=== PATIENT | female | born 1995 | race Caucasian/White ===

== ENCOUNTER 2019-05-10 17:11 | Emergency (ER) | payer OTHER, SELFPAY ==
[2019-05-10] MEDS ORDERED: Ketorolac Tromethamine 60 MG/2 ML VIAL ONE (17:33)
--- NOTE | 2019-05-10 17:53 | RAD ---
3 views right foot: 05/10/2019 COMPARISON: None HISTORY: Injury, trauma, pain FINDINGS: No fracture or dislocation. No radiopaque foreign body or subcutaneous gas. There is mild e nthesophyte formation at the origin of the plantar aponeurosis and insertion of the Achilles tendon. IMPRESSION: No acute findings.
== END 2019-05-10 18:30 | disposition home or self-care (01) ==
LOC: ERS 17:11
DX: S90.31XA Contusion of right foot, initial encounter (principal); X58.XXXA Exposure to other specified factors, initial encounter
CPT/HCPCS: 96372; J1885